=== PATIENT | male | born 1950 | race Caucasian/White ===

== ENCOUNTER 2024-04-27 14:49 | Emergency (ER) | payer BC, OTHER ==
[2024-04-27 15:41] VITALS: TEMP 98.8; BMI 31.5
[2024-04-27 16:22] LABS: VENOUS BASE EXCESS 2.4 mmol/L (-2-2); VENOUS O2 SATURATION 26.7 % (70-80); VENOUS PCO2 43.3 mmHg (38-52); VENOUS PH 7.417 (7.310-7.410)
[2024-04-27 16:29] LABS: BASO % 0.2 % (0-2.0); EOS % 0.3 % (0-4.5); HEMOGLOBIN 13.5 GM/dL (11.7-16.9); INR 1.35 (0.83-1.09); LYMPH % 8.6 % (8-40); MCH 31.4 pg (25.7-33.7); MCHC 35.4 g/dl (32.0-35.9); MEAN CELL VOLUME 88.7 fl (80-96); MEAN PLT VOLUME 9.8 fl (7.5-11.1); MONO % 10.6 % (3.8-10.2); NEUT % 80.3 % (42.8-82.8); PLATELET COUNT 157 10^3/uL (134-434); PROTHROMBIN TIME (PATIENT) 15.1 SEC (9.7-13.0); RBC 4.29 M/mm3 (4.00-5.60); RDW 12.4 % (11.9-15.9); WHITE BLOOD COUNT 8.3 K/mm3 (4.0-10.0)
[2024-04-27 16:32] LABS: ACTIVATED PTT 33.5 SECONDS (25.2-36.5)
[2024-04-27 16:41] LABS: POTASSIUM 3.5 mmol/L (3.5-5.1)
[2024-04-27 16:42] LABS: CALCIUM 8.5 mg/dL (8.5-10.1)
[2024-04-27 16:44] LABS: BLOOD UREA NITROGEN 16.9 mg/dL (7-18)
[2024-04-27 16:46] LABS: CREATININE 0.9 mg/dL (0.55-1.3)
[2024-04-27 16:47] LABS: BILIRUBIN,TOTAL 0.9 mg/dL (0.2-1); TOT PROT 6.4 g/dl (6.4-8.2)
[2024-04-27 16:56] VITALS: BP 131/82; PULSE 100; RESP 20
[2024-04-27] MEDS: SODIUM CHLORIDE 0.9% 500 ML INFUS.BAG IV ONE (17:22)
[2024-04-27] MEDS ORDERED: AMOX TR/POT CLAV 875MG/125MG TABLETS (FP) ONE (19:37)
[2024-04-27] MEDS: AMOX TR/POT CLAV 875MG/125MG TABLETS (FP) PO ONE (19:39)
== END 2024-04-27 19:39 | disposition home or self-care (01) ==
LOC: JER 14:49
DX: R55 Syncope and collapse (principal); J18.9 Pneumonia, unspecified organism; R50.9 Fever, unspecified; R09.81 Nasal congestion; R43.2 Parageusia; R13.10 Dysphagia, unspecified; R63.0 Anorexia; Z20.822 Contact with and (suspected) exposure to COVID-19
CPT/HCPCS: 0241U-QW; 36415; 71045-TC-FY; 71250-TC; 80053; 82272; 82803; 83605; 84484; 85025; 85610; 85730; 86850; 86900; 86901; 87040; 93005; 93010; 99285-25